=== PATIENT | female | born 1935 | race Caucasian/White ===

== ENCOUNTER 2017-05-01 11:53 | Day surgery (SDC) | payer MEDICARE ==
[~2017-05-01] VITALS: Ht 165.1 cm; Wt 80.0 kg
[~2017-05-01 11:53] MED LIST: 0.9% Sodium Chloride 1,000 ML IV SCH; BETA60LO5 TP; GABA600T2 PO; HYDR25TA4 PO; LEVO100T6 PO; LOSA50TA37 PO; ONDA4TAB9 PO; OXYC5TAB72 PO; PRAM0.5T3 PO; SERT25TA6 PO; Sodium Chloride LOK Flush 10 mL Syringe IV PRN; fentaNYL-PF 50 mCg/mL 2 mL Inj IVPUSH PRN
[2017-05-01 12:37] VITALS: BP 131/92; PULSE 68; RESP 16; O2SAT 95
[2017-05-01] MEDS ORDERED: PANT20TA2 PO (12:37)
[2017-05-01 13:50] VITALS: BP 104/50; PULSE 69; RESP 16; O2SAT 97
[2017-05-01 14:10] VITALS: BP 148/87; PULSE 75; RESP 16; O2SAT 100
--- NOTE | 2017-05-01 14:52 | ENDO ---
[address] [address] ENDOSCOPY PROCEDURE PATIENT: ISSA ELLINGTON : 1935 MR#: [id number] ADMIT: 05/01/2017 JOB ID: [id number] DATE: 05/01/2017 PRIMARY PROVIDER: Radha Lozano PROCEDURE: Esophagogastroduodenoscopy with biopsy. INDICATIONS: An 81-year-old female with a history of reflux and Silvestre's. EQUIPMENT: GIF H 180 J. SEDATION: 1. 2 mg Versed. 2. 50 mcg fentanyl. COMPLICATIONS: None identified. PROCEDURAL INFORMATION: After the risks and benefits were explained, written and verbal informed consent was obtained. The patient was brought into the endoscopy suite and placed into the left lateral decubitus position. Sedation was achieved as above. The scope was introduced into the mouth through the bite block and advanced to the second portion of the duodenum. The scope was slowly withdrawn to carefully examine the mucosa for any defects or lesions. Retroflexed views were accomplished in the stomach. The stomach was decompressed. The scope removed from the patient who tolerated the procedure well. FINDINGS: 1. Duodenum: No pathology identified from the bulb through to the second portion. 2. Stomach: No ulcers, no mass lesions. No outlet obstruction. Retroflexed views disclosed a sliding hiatal hernia. 3. Esophagus: The squamocolumnar junction did appear to extend up into the tubular esophagus mostly in the 2 o'clock location consistent with a short tongue of Silvestre's. This would be judged C 0 M 1 by the PROG criteria. I did not see any ulceration in this or nodularity here in this tongue. It was targeted for a biopsy. In the 5-6 o'clock location at the GE junction, there was a small ulcerations. This area was targeted for a separate biopsy. Otherwise there was a small linear erosion in the distal esophagus from the area of Silvestre's. No other pathology appreciated throughout. The GEJ was at 36 cm from the incisors and the pinchcock was at 42 cm from the incisors. ENDOSCOPIC DIAGNOSES: 1. Hiatal hernia. 2. Silvestre's. 3. Ulcerative esophagitis. RECOMMENDATIONS: 1. Await histopathology. 2. If non dysplastic Silvestre's is confirmed, then surveillance EGD can be considered again in three years' time. 3. The patient is encouraged to be much more compliant with her PPI medication. 4. I would recommend she consider proceeding with esophageal manometry and then surgical consultation in that she really has a desire to be off of these proton pump inhibitor medications.
--- NOTE | 2017-05-03 10:35 | PATH ---
SURGICAL PATHOLOGY Attending Physician:Evie Lockwood CASE STATUS: Signed Out PATIENT NAME: ISSA ELLINGTON PID: [id number] : 1935 DATE COLLECTED:05/01/2017 00:00 SPECIMEN: 1: Esophagus, Biopsy 2: Esophagus, Biopsy CLINICAL HISTORY: 1. DISTAL ESOPHAGUS BX 2. GEJ ULCER BX FINAL DIAGNOSIS: 1.DISTAL ESOPHAGUS BIOPSY: GASTRIC CARDIA-TYPE MUCOSA AND SMALL AMOUNT OF SQUAMOUS MUCOSA. POSITIVE FOR SPECIALIZED METAPLASIA OF JACKSON' S-TYPE ESOPHAGUS. Negative for dysplasia and malignancy. Negative for squamous intraepithelial eosinophils are not increased. 2.GASTROESOPHAGEAL JUNCTION ULCER BIOPSY: SQUAMOUS MUCOSA AND GASTRIC CARDIA-TYPE MUCOSA WITH CHRONIC INFLAMMATION. Negative for specialized metaplasia of Jackson' s-type esophagus. Definite ulceration not noted. Negative for dysplasia and malignancy. Negative for squamous intraepithelial eosinophils. ICD10 K22.70 GROSS DESCRIPTION: The specimen is received in two formalin filled containers labeled with the patient's name. 1). The specimen is sublabeled "distal esophagus" and consists of a 0.3 x 0.2 x 0.2 CM portion of tissue which is entirely submitted in cassette 1A. 2). The specimen is sublabeled "GEJ ulcer" and consists of a 0.2 x 0.2 x 0.2 CM portion of tissue which is entirely submitted in cassette 2A. 05/02/2017 [facility] MICRO DESCRIPTION: See diagnosis. ICD-9 CODES: CPT CODES: 1: 95024 2: 18431 Electronically Signed Out Lloyd Garg MD [facility] [address] [place] [address] Technical component performed at [facility], [address] [place] [address] Ave[address], [address]
== END 2017-05-01 23:59 | disposition home or self-care (01) ==
LOC: END 11:53
PROVIDERS: ATTEND Internal Medicine Gastroenterology
DX: K22.70 Barrett's esophagus without dysplasia (principal); K21.9 Gastro-esophageal reflux disease without esophagitis; K44.9 Diaphragmatic hernia without obstruction or gangrene; E03.9 Hypothyroidism, unspecified; I73.9 Peripheral vascular disease, unspecified; I10 Essential (primary) hypertension; E78.5 Hyperlipidemia, unspecified
CPT/HCPCS: 43239; G0500; J2250; J3010; J7030

== ENCOUNTER 2017-06-05 07:37 | Day surgery (SDC) | payer MEDICARE ==
[~2017-06-05 07:37] MED LIST changes: -0.9% Sodium Chloride 1,000 ML IV SCH; -GABA600T2 PO; -ONDA4TAB9 PO; -OXYC5TAB72 PO; +PANT20TA2 PO; -SERT25TA6 PO; -Sodium Chloride LOK Flush 10 mL Syringe IV PRN; -fentaNYL-PF 50 mCg/mL 2 mL Inj IVPUSH PRN
[2017-06-05] MEDS ORDERED: Lidocaine Topical 2% 30 mL Jelly ONE (07:46)
== END 2017-06-05 23:59 | disposition home or self-care (01) ==
LOC: END 07:37
PROVIDERS: ATTEND Internal Medicine Gastroenterology
DX: Z87.19 Personal history of other diseases of the digestive system (principal)